=== PATIENT | female | born 1970 | race Two or more races ===

== ENCOUNTER 2018-07-30 07:00 | Day surgery (SDC) | payer OTHER ==
[~2018-07-30 07:00] MED LIST: SYNTHROID50 MCG PO
[2018-07-30] MEDS ORDERED: DICLOFENAC POTA50 MG PO (09:28)
[2018-07-30] MEDS ORDERED: ZITHROMAX500 MG PO (09:28)
== END 2018-07-30 13:20 | disposition home or self-care (01) ==
LOC: U 07:00 → CIR.AMB 07:00
DX: N72 Inflammatory disease of cervix uteri (principal)